=== PATIENT | female | born 1965 | race Caucasian/White ===

== ENCOUNTER 2016-09-05 00:38 | Emergency (ER) | payer MEDICAID ==
[2016-09-05 00:39] VITALS: BMI 26.6
[2016-09-05] MEDS ORDERED: Sodium Chloride 0.9% 1,000 ML IV STA (01:47)
[2016-09-05 02:09] LABS: BASO % 0.4 % (0.0-2.0); EOS # 0.2 K/uL (0.0-0.7); EOS % 2.4 % (0.0-4.0); HEMOGLOBIN 13.5 g/dL (11.0-16.0); LYMPH # 3.1 K/uL (1.0-4.3); LYMPH % 36.2 % (20.0-40.0); MEAN CELL VOLUME 87.9 fL (81.0-99.0); MEAN CORPUSCULAR HEMOGLOBIN 28.7 pg (27.0-31.0); MEAN CORPUSCULAR HGB CONC 32.6 g/dL (33.0-37.0); MEAN PLATELET VOLUME 7.5 fL (7.2-11.7); MONO # 0.6 K/uL (0.0-0.8); MONO % 6.4 % (0.0-10.0); NEUT # 4.8 K/uL (1.8-7.0); NEUT % 54.6 % (50.0-75.0); NRBC % 0.1 % (0.0-2.0); RBC 4.71 Mil/uL (3.80-5.20); WHITE BLOOD COUNT 8.7 K/uL (4.8-10.8)
[2016-09-05 02:15] LABS: PROTHROMBIN TIME 10.6 SECONDS (9.7-12.2)
[2016-09-05 02:15] LABS: SQUAMOUS EPITHIAL 1 /hpf (0-5); URINE BACTERIA RARE (<OCC); URINE BILIRUBIN NEGATIVE (NEGATIVE); URINE BLOOD 1+ (NEGATIVE); URINE CLARITY Clear (Clear); URINE COLOR Colorless (YELLOW); URINE GLUCOSE (UA) NORMAL (Normal); URINE LEUKOCYTE ESTERASE NEG Leu/uL (Negative); URINE NITRATE NEGATIVE (NEGATIVE); URINE PROTEIN NEGATIVE (NEGATIVE); URINE UROBILINOGEN NORMAL mg/dL (0.2-1.0)
--- NOTE | 2016-09-05 02:17 | C.PDOC ---
History Of Present Illness Patient sydni she went to the bathroom to urinate and she saw bright red blood while wiping herself. Patient sts she is on the 3rd day of the menstrual period and her menstrual blood is dark now. Patient sts she is concern because she is colon cancer survivor. The last colonoscopy was done a year ago and was unremarkable. Patient denies abdominal pain/rectal pain/wait loss/nausea/ vomiting. Patient sydni 1 week ago she had several episodes of diarrhea that spontaneously resolved without treatment. Time Seen by Provider: 09/05/16 01:02 Chief Complaint (Nursing): Abdominal Pain History Per: Patient History/Exam Limitations: no limitations Onset/Duration Of Symptoms: Sudden Onset, Other (just prior to arrival) Current Symptoms Are (Timing): Gone Severity: Mild Location Of Pain/Discomfort: Other (no pain) Past Medical History Reviewed: Historical Data, Nursing Documentation, Vital Signs Vital Signs: Last Vital Signs Temp 97.8 F 09/05/16 00:43 Pulse 94 H 09/05/16 00:43 Resp 20 09/05/16 00:43 BP 169/80 H 09/05/16 00:43 Pulse Ox 100 09/05/16 03:22 - Medical History PMH: Anxiety, Arthritis (OSTEOPENIA), Gall Bladder Disease Denies: Chronic Kidney Disease Other PMH: Colon cancer survivor Surgical History: Cholecystectomy Family History: States: No Known Family Hx - Social History Hx Alcohol Use: No Hx Substance Use: No Review Of Systems Except As Marked, All Systems Reviewed And Found Negative. Physical Exam - Physical Exam Appears: Well, Non-toxic, No Acute Distress Skin: Normal Color, No Rash Head: Atraumatic, Normacephalic Eye(s): bilateral: Normal Inspection Neck: Normal, Normal ROM Lymphatic: Normal Exam Chest: Symmetrical, No Deformity, No Tenderness Cardiovascular: Rhythm Regular Respiratory: Normal Breath Sounds Gastrointestinal/Abdominal: Normal Exam, Soft, No Tenderness Rectal: Rectal Tone, Heme Positive (brown stool, no bright red blood seen), Hemorrhoids (external), No Tenderness Back: Normal Inspection Extremity: Normal ROM, No Tenderness, No Swelling Neurological/Psych: Oriented x3, Normal Speech, Normal Cognition, Normal Motor, Normal Sensation ED Course And Treatment - Laboratory Results Result Diagrams: 09/05/16 02:02 09/05/16 02:02 O2 Sat by Pulse Oximetry: 100 Progress Note: Labs are significant for hypokalemia. KCL po given. Rectal exam shows externeal hemorrhoids, no tenderness, stool is brown, but heme positive. Patient was given copies of her labs and she was instructed to f/u with her GI as soon as possible. Disposition - Disposition Disposition: HOME/ ROUTINE Disposition Time: 03:18 Condition: STABLE Additional Instructions: Follow up with your [employer] within 1-2 days. Return to ED if feel worse. Instructions: Rectal Bleeding (ED), Hypokalemia (ED) Print Language: PRYDEINIG - Clinical Impression Clinical Impression: Rectal bleeding, Hypokalemia
[2016-09-05 02:20] LABS: ALBUMIN 3.9 g/dL (3.5-5.0)
[2016-09-05 02:23] LABS: ALB/GLOB RATIO 1.2 (1.0-2.1); AST/SGOT 38 U/L (14-36); BLOOD UREA NITROGEN 12 mg/dL (7-17); GFR AFRICAN-AMERICAN > 60; GFR NON-AFRICAN AMERICAN > 60
[2016-09-05 02:24] LABS: ALT/SGPT 51 U/L (9-52); CALCIUM 8.6 mg/dl (8.6-10.4)
[2016-09-05] MEDS ORDERED: Potassium Chloride 20 mEq ER Tab PO STA (03:12)
[2016-09-05] MEDS ORDERED: Potassium Chloride 20 mEq ER Tab PO ONE (03:18)
[2016-09-05 12:23] VITALS: BP 156/86; PULSE 82; RESP 20; TEMP 98.2; O2SAT 98
== END 2016-09-05 03:41 | disposition home or self-care (01) ==
LOC: C.ER 00:38
DX: K62.5 Hemorrhage of anus and rectum (principal); E87.6 Hypokalemia
CPT/HCPCS: 80053; 81001; 85025; 85610; 85730; 96360; 99283; G0328; J7040

== ENCOUNTER 2018-02-18 15:28 | Emergency (ER) | payer MEDICAID ==
[2018-02-18 15:28] VITALS: BMI 26.6
[2018-02-18 15:42] VITALS: TEMP 98.3
--- NOTE | 2018-02-18 16:19 | C.PDOC ---
History Of Present Illness 52 year old female patient with history of hypertension and hyperlipidemia presents to the emergency room complain of back pain for x1 week. Associated symptom includes cough for x1 day. Patient notes back pain is progressively worse. She denies trauma and change in sensation. Time Seen by Provider: 02/18/18 15:36 Chief Complaint (Nursing): Back Pain History Per: Patient History/Exam Limitations: no limitations Onset/Duration Of Symptoms: Days (x1 week) Current Symptoms Are (Timing): Still Present Past Medical History Reviewed: Historical Data, Nursing Documentation, Vital Signs Vital Signs: Last Vital Signs Temp 98.3 F 02/18/18 15:31 Pulse 92 H 02/18/18 15:31 Resp 18 02/18/18 15:31 BP 141/86 02/18/18 15:31 Pulse Ox 100 02/18/18 15:31 - Medical History PMH: Anxiety, Arthritis (OSTEOPENIA), Fibromyalgia, Gall Bladder Disease, HTN, Hypercholesterolemia Surgical History: Cholecystectomy Family History: States: No Known Family Hx - Social History Hx Alcohol Use: No Hx Substance Use: No - Immunization History Hx Tetanus Toxoid Vaccination: No Hx Influenza Vaccination: Yes Hx Pneumococcal Vaccination: No Review Of Systems Except As Marked, All Systems Reviewed And Found Negative. Constitutional: Negative for: Other (back trauma ) Musculoskeletal: Positive for: Back Pain Neurological: Negative for: Other (change in sensation of lower back ) Physical Exam - Physical Exam Appears: Non-toxic, No Acute Distress Skin: Warm, Dry Head: Normacephalic Eye(s): bilateral: Normal Inspection, PERRL, EOMI Ear(s): Bilateral: Normal Oral Mucosa: Moist Throat: Normal Neck: Normal ROM, Supple Chest: Symmetrical Cardiovascular: Rhythm Regular Respiratory: Normal Breath Sounds, No Rales, No Rhonchi, No Wheezing Gastrointestinal/Abdominal: Soft, No Tenderness Back: No CVA Tenderness, No Vertebral Tenderness, Paraspinal Tenderness (right) Extremity: Normal ROM (x4) Neurological/Psych: Oriented x3, Normal Speech, Normal Cognition, Normal Motor, Normal Sensation ED Course And Treatment O2 Sat by Pulse Oximetry: 100 (RA) Pulse Ox Interpretation: Normal Medical Decision Making Medical Decision Making: Plans: -- naproxen -- flexeril -- Prednisone Reassess: On reassessment, patient is resting comfortably, with improvement of back pain. Patient remains afebrile, with no bony tenderness, extremity numbness or weakness, or abdominal pain. Patient is ambulatory in the emergency department with no signs of discomfort. Patient was advised to follow up with physician/clinic in 1-2 days. Disposition - Disposition Referrals: Nick Bonner MD [Non-Staff] - Disposition: HOME/ ROUTINE Disposition Time: 17:10 Condition: STABLE Additional Instructions: Follow up with the medical doctor within 1-2 days. Return if worsened. 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 - Scribe Statement The provider has reviewed the documentation as recorded by the Nayan Pearce Do All medical record entries made by the Otfibkathia were at my direction and personally dictated by me. I have reviewed the chart and agree that the record accurately reflects my personal performance of the history, physical exam, medical decision making, and the department course for this patient. I have also personally directed, reviewed, and agree with the discharge instructions and disposition.
[2018-02-18] MEDS ORDERED: Naproxen 550 mg Tab PO STA (16:21)
[2018-02-18] MEDS ORDERED: Naproxen 550 mg Tab PO ONE (16:32)
[2018-02-18 17:19] VITALS: BP 142/83; PULSE 75; RESP 16; O2SAT 98
== END 2018-02-18 17:18 | disposition home or self-care (01) ==
LOC: C.ER 15:28
DX: M54.5 Low back pain (principal)

== ENCOUNTER 2018-02-21 13:14 | Emergency (ER) | payer MEDICAID ==
[2018-02-21 13:14] VITALS: BMI 26.6
[2018-02-21 13:21] VITALS: TEMP 98.7; O2SAT 99
--- NOTE | 2018-02-21 14:55 | RAD ---
Date of service: 02/21/2018 PROCEDURE: Radiographs of the Lumbar Spine. HISTORY: r/o fx COMPARISON: CT abdomen and pelvis with contrast performed 09/13/15 FINDINGS: BONES: Alignment appears satisfactory. No listhesis. No acute displaced fracture identified. DISC SPACES: Unremarkable. OTHER FINDINGS: Anastomotic suture material within the right upper quadrant. Pelvic calcifications, likely phleboliths. IMPRESSION: No acute osseous abnormality is detected.
[2018-02-21 15:04] VITALS: BP 155/95; PULSE 73; RESP 18
--- NOTE | 2018-02-21 17:11 | C.PDOC ---
History Of Present Illness 52 year old female presents to the emergency department with complaints of lower back pain for the last two weeks. 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 She denies bowel/bladder incontinence and saddle anesthesia. Patient was evaluated at [facility] 3 days ago, and has been taking her medications with no relief of pain. Chief Complaint (Nursing): Back Pain History Per: Patient History/Exam Limitations: no limitations Onset/Duration Of Symptoms: Other (2 weeks) Quality Of Discomfort: "Pain" Previous Symptoms: Back Pain Associated Symptoms: None. denies: Incontinence, New Weakness, New Numbness Past Medical History Reviewed: Historical Data, Nursing Documentation, Vital Signs Vital Signs: Last Vital Signs Temp 98.7 F 02/21/18 13:19 Pulse 73 02/21/18 15:04 Resp 18 02/21/18 15:04 BP 155/95 H 02/21/18 15:04 Pulse Ox 99 02/21/18 15:04 - Medical History PMH: Anxiety, Arthritis (OSTEOPENIA), Fibromyalgia, Gall Bladder Disease, HTN, Hypercholesterolemia Denies: Chronic Kidney Disease Surgical History: Cholecystectomy Family History: States: No Known Family Hx - Social History Hx Alcohol Use: No Hx Substance Use: No - Immunization History Hx Tetanus Toxoid Vaccination: No Hx Influenza Vaccination: Yes Hx Pneumococcal Vaccination: No Review Of Systems Except As Marked, All Systems Reviewed And Found Negative. Constitutional: Negative for: Fever, Chills Genitourinary: Negative for: Dysuria, Frequency, Incontinence, Hematuria Musculoskeletal: Positive for: Back Pain (lower back) Neurological: Negative for: Weakness, Numbness Physical Exam - Physical Exam Appears: Well, Non-toxic, No Acute Distress Skin: Normal Color, Warm, Dry Head: Atraumatic, Normacephalic Eye(s): bilateral: Normal Inspection, PERRL, EOMI Neck: Normal, Supple Chest: Symmetrical, No Tenderness Back: Other (diffuse lower back tenderness) Extremity: Bilateral: Atraumatic, Normal Color And Temperature, Normal ROM Neurological/Psych: Oriented x3, Normal Speech, Normal Cognition, Normal Sensation, Normal Reflexes ED Course And Treatment O2 Sat by Pulse Oximetry: 99 (RA) Pulse Ox Interpretation: Normal - Other Rad XR LS Spine X-Ray: Viewed By Me, Read By Radiologist Interpretation: IMPRESSION: No acute osseous abnormality is detected. Medical Decision Making Medical Decision Making: Plan: XR LS Spine Disposition - Disposition Referrals: María Stallings MD [Medical Doctor] - Disposition: HOME/ ROUTINE Disposition Time: 14:50 Condition: GOOD Additional Instructions: GULSHAN BURNS, thank you for letting us take care of you today. Your provider was Donald Freire DO and you were treated for BACK PAIN. The emergency medical care you received today was directed at your acute symptoms. If you were prescribed any medication, please fill it and take as directed. It may take several days for your symptoms to resolve. Return to the Emergency Department if your symptoms worsen, do not improve, or if you have any other problems. Please contact your doctor or call one of the physicians/clinics you have been referred to that are listed on the Patient Visit Information form that is included in your discharge packet. Bring any paperwork you were given at discharge with you along with any medications you are taking to your follow up visit. Our treatment cannot replace ongoing medical care by a primary care provider outside of the emergency department. Thank you for allowing the [facility] team to be part of your care today. Followup with your primary care doctor this week for re-evaluation and further management. Instructions: Low Back Pain (DC) Forms: [employer] (Azeri) - Clinical Impression Clinical Impression: Low back strain - Scribe Statement The provider has reviewed the documentation as recorded by the Scribe (Allan Cardona) Provider Attestation: All medical record entries made by the Scribe were at my direction and personally dictated by me. I have reviewed the chart and agree that the record accurately reflects my personal performance of the history, physical exam, medical decision making, and the department course for this patient. I have also personally directed, reviewed, and agree with the discharge instructions and disposition.
== END 2018-02-21 15:07 | disposition home or self-care (01) ==
LOC: C.ER 13:14
DX: S39.012A Strain of muscle, fascia and tendon of lower back, initial encounter (principal); X50.0XXA Overexertion from strenuous movement or load, initial encounter; Y99.0 Civilian activity done for income or pay; E78.00 Pure hypercholesterolemia, unspecified; I10 Essential (primary) hypertension; M79.7 Fibromyalgia

== ENCOUNTER 2018-03-02 10:42 | Outpatient (CLI) | payer MEDICAID | END 2018-03-02 10:43 | disposition home or self-care (01) | LOC: C.MAMMO 10:42 | DX: Z12.31 Encounter for screening mammogram for malignant neoplasm of breast (principal); R92.2 Inconclusive mammogram ==